=== PATIENT | female | born 1980 | race Two or more races ===

== ENCOUNTER 2025-01-29 00:20 | Emergency (ER) | payer MEDICAID, SELFPAY ==
[2025-01-29 00:21] VITALS: BMI 32.1
[2025-01-29 00:24] VITALS: BP 164/95; PULSE 100; RESP 18; TEMP 36.6; O2SAT 99
[2025-01-29 02:27] VITALS: BP 134/80; PULSE 92; RESP 17; TEMP 37; O2SAT 98
--- NOTE | 2025-01-29 02:47 | EDNOTE_ITS ---
ED Dental RME/HPI General Chief complaint: Dental/Oral/Throat Stated complaint: SWELLING TO RIGHT UPPER LIP X 15 MIN Time Seen by Provider: 01/29/25 00:30 Arrival date/time: 01/29/25 00:20 44-year-old female reports with complaints of swelling itching and irritation to the right side of her upper lip that occurred today. Patient states that after wiping her mouth with a napkin she noticed a swelling in the itching. Patient states that after some time the swelling has gone down and but the itching remains that she denies any tongue swelling throat swelling shortness of breath cough congestion fever or chills. Patient states that she has not taken any medications for symptoms Limitations: no limitations Related Data Previous Rx's ?Medication ?Instructions ?Recorded hydroxyzine HCl 50 mg tablet 50 mg PO TID PRN anxiety #30 tabs 09/28/23 Allergies Allergy/AdvReac Type Severity Reaction Status Date / Time No Known Allergies Allergy Verified 10/05/23 18:38 Review of Systems Constitutional Constitutional: Denies fever(s) and Denies headache(s) ENT Ears, Nose, Mouth, and Throat: Denies headache(s), Reports mouth lesions, Denies mouth pain, Denies throat swelling, Denies tongue swelling and Denies vertigo Cardiovascular Cardiovascular: Denies chest pain at rest and Denies dyspnea Respiratory Respiratory: Denies cough and Denies dyspnea Gastrointestinal Gastrointestinal: Denies nausea and Denies vomiting Integumentary/Breasts Skin/Breast: Reports pruritus and Reports rash Neurologic Neurologic: Denies headache(s) and Denies vertigo Hematologic/Lymphatic Hematologic/Lymphatic: Denies easy bleeding and Denies easy bruising Allergic/Immunologic Allergic/Immunologic: Denies throat swelling and Denies tongue swelling ED Exam General Limitations: Present no limitations General appearance: Present alert and in no apparent distress Head Head exam: Present atraumatic ENT ENT exam: Present normal oropharynx and mucous membranes moist; Absent normal exam (small area of redness and swelling right upper lip no lesions noted oral mucosa pink no lesions) Neck Neck exam: Present normal inspection, full ROM and trachea midline Neurological Exam Neurological exam: Present alert, oriented X3 and CN II-XII intact Psychiatric Psychiatric exam: Present normal affect and normal mood Skin Skin exam: Present warm, dry, intact and normal color Course Quality Measures none Vital Signs Vital signs: Vital Signs Temperature 97.9 F 01/29/25 00:24 Pulse Rate 100 01/29/25 00:24 Respiratory Rate 18 01/29/25 00:24 Blood Pressure 164/95 H 01/29/25 00:24 Pulse Oximetry (%) 99 01/29/25 00:24 Oxygen Delivery Method Room Air 01/29/25 00:24 Dental / Oral Patient data External records reviewed:: None Clinical information provided by:: patient Social determinants that could affect healthcare access:: none Patient has the following chronic illnesses:: none How is presenting disease/condition affected by chronic disease/condition?: no chronic disease Evaluation data The following diagnostics were reviewed and interpreted by me:: other (specify) (none) Lab and/or radiology exams considered but not ordered:: none Interpretation Summary: n/a Medications / Prescriptions Medications or Prescriptions considered but not ordered:: none Medication administrations:: none Consultations Consultation(s) initiated? (list below): No Diagnosis Most likely diagnosis given after review of the tests above:: Contact dermatitis Admission Indicated Admission indicated?: not indicated Admission Request Was there a request for admission?: No Disposition Plan Disposition Plan: Discharge Discharge Attestation Discharge Attestation: The patient and all family members were given an opportunity to ask questions and understood the discharge instructions. Discharge instructions specifically effects, indications for sooner follow up or return to the emergency department, and the expected course of current diagnosis. Patient condition: Stable Discharge Plan Plan Patient Disposition: HOME (Self Care) Prescriptions/Referrals Prescriptions/Med Rec: No Action hydroxyzine HCl 50 mg tablet 50 mg PO TID PRN (Reason: anxiety) Qty: 30 0RF Referrals: Romulo Evans MD [Primary Care Provider] - In 1 week Problem List Clinical Impression: Contact dermatitis Patient/Caregiver Discharge Instructions Discharge Activity: activity as tolerated Education Materials: ED Contact Dermatitis Additional Instructions: keep area clean and dry you may take medication such as Benadryl and wash your face follow-up with your primary care provider if symptoms does not improve in 3 days. Return to the emergency department if symptoms should worsen Print Language: Hungarian Stand Alone Forms: [facility] Award Info., Patient Portal Info Letter
== END 2025-01-29 03:09 | disposition home or self-care (01) ==
PROVIDERS: Emergency Provider Emergency Medicine; PCP Family Medicine
DX: L25.9 Unspecified contact dermatitis, unspecified cause (principal)
CPT/HCPCS: 99281